=== PATIENT | female | born 1975 | race Asian ===

== ENCOUNTER 2024-02-05 20:45 | Emergency (ER) | payer SELFPAY ==
[~2024-02-05] VITALS: Ht 157.5 cm; Wt 59.0 kg
[2024-02-05 20:51] VITALS: TEMP 98; O2SAT 99
[2024-02-05] MEDS: TETANUS, DIPHTHERIA, PERTUSSIS VAC/PF 0.5ML (>10YR OLD) IM ONE (22:24)
[2024-02-05] MEDS: LIDOCAINE HCL/EPINEPHRINE 1%-EPI 1:100,000 20ML VIAL INFIL ONE (22:29)
[2024-02-05] MEDS: ACETAMINOPHEN 325MG TABLET PO ONE (22:29)
[2024-02-05 23:40] VITALS: BP 136/61; PULSE 92; RESP 20; O2SAT 99
== END 2024-02-05 23:55 | disposition home or self-care (01) ==
LOC: ER 20:45
DX: S01.81XA Laceration without foreign body of other part of head, initial encounter (principal); V49.49XA Driver injured in collision with other motor vehicles in traffic accident, initial encounter; Y93.89 Activity, other specified; Y92.89 Other specified places as the place of occurrence of the external cause; Y99.8 Other external cause status
CPT/HCPCS: 70450; 90715; 12011; 90471; 99285; J3490; Z7610 ×3